=== PATIENT | female | born 1975 | race Caucasian/White ===

== ENCOUNTER 2016-08-09 14:37 | Emergency (ER) | payer OTHER ==
[2016-08-09 15:06] VITALS: BP 104/62; PULSE 67; RESP 14; TEMP 99.7; O2SAT 97
--- NOTE | 2016-08-09 16:13 | UCPHY ---
H & P Time Seen by Provider: 08/09/16 15:43 Patient Type: New HPI/ROS: My inpatient admit sinus pain 6/10 intensity maxillary region and radiates to her teeth. She has increased fatigue associated with the symptoms. Her symptoms been present for 5 days. She describes the discomfort as a pressure feeling. She has associated nasal congestion. She has partial relief from over -the-counter analgesics with no clear exacerbating factors other than that. ROS: No high fevers. No fevers at all. No confusion. No other neuro symptoms. She denies any dental pain. She feels the pain in her teeth his radiating from the sinuses. 7 point ROS is otherwise negative. Past Medical/Surgical History: Otherwise healthy Smoking Status: Never smoked Physical Exam: Physical Exam Vital signs are normal. General: No acute distress HEENT: Nose: Yellow discharge. Swollen nasal turbinates. She has sinus tenderness to percussion left maxillary sinus. Ears: External canals and tympanic membranes are clear with no erythema or abnormal findings bilaterally. Oropharynx: No erythema or exudates. No dysphonia. No drooling or stridor. Neck supple with no meningismus. Eyes: Pupils equal and react to light. Extraocular motions are intact. Lungs: Clear to auscultation bilaterally with no rales, rhonchi or wheeze. No respiratory distress. Cardiac: Regular rate and rhythm with no murmur gallop or rub Skin: No rash or pallor. Neuro: Alert with no focal deficits noted. Initial differential diagnosis: Rhinosinusitis, bacterial sinusitis, Constitutional: Initial Vital Signs Temperature (C) 37.6 C 08/09/16 15:04 Heart Rate 67 08/09/16 15:04 Respiratory Rate 14 08/09/16 15:04 Blood Pressure 104/62 08/09/16 15:04 O2 Sat (%) 97 08/09/16 15:04 O2 Delivery Mode Room Air Allergies/Adverse Reactions: metronidazole [From Flagyl] Allergy (Verified 08/09/16 15:01) Sulfa (Sulfonamide Antibiotics) Allergy (Verified 08/09/16 15:03) Home Medications: Medication Instructions Recorded Amoxicillin Trihydrate 500 mg PO TID 10 Days 08/09/16 [Amoxicillin] Fluticasone Nasal [Flonase Nasal 2 sprays NASAL DAILY #1 mdi 08/09/16 [place]] Medical Decision Making ED Course/Re-evaluation: Patient appears clinically well Departure - Departure Disposition: Home, Routine, Self-Care Clinical Impression: Acute rhinosinusitis Condition: Good Instructions: Rhinosinusitis (ED) Additional Instructions: Diagnosis: Sinusitis Plan: Humidifier [id number] mg per 6 hours as needed for pain and swelling Flonase steroid nasal spray Your symptoms should improve over the next 3-5 days. If your symptoms are worsening instead, then start the Amoxil antibiotic in addition Return for any significant worsening despite the treatment plan. Referrals: [facility] [Other] - As per Instructions Prescriptions: Amoxicillin Trihydrate [Amoxicillin] 500 mg PO TID 10 Days Fluticasone Nasal [Flonase Nasal [place]] 2 sprays NASAL DAILY #1 [facility]di - PQRS PQRS Measurement: NA
== END 2016-08-09 16:30 | disposition home or self-care (01) ==
LOC: CED 14:37
DX: J32.9 Chronic sinusitis, unspecified (principal); J31.0 Chronic rhinitis
CPT/HCPCS: 99203-PO; G0463-PO